=== PATIENT | female | born 1990 | race Caucasian/White ===

== ENCOUNTER 2019-04-21 04:33 | Emergency (ER) | payer SELFPAY ==
[~2019-04-21] VITALS: Ht 160 cm; Wt 79.9 kg
[2019-04-21 06:21] VITALS: BP 132/88
== END 2019-04-21 06:21 | disposition home or self-care (01) ==
LOC: ED 04:33
DX: S05.02XA Injury of conjunctiva and corneal abrasion without foreign body, left eye, initial encounter (principal); H16.001 Unspecified corneal ulcer, right eye; F41.9 Anxiety disorder, unspecified; F32.9 Major depressive disorder, single episode, unspecified; X58.XXXA Exposure to other specified factors, initial encounter; Y93.89 Activity, other specified; Y92.89 Other specified places as the place of occurrence of the external cause; Y99.8 Other external cause status